=== PATIENT | male | born 1995 | race Caucasian/White ===

== ENCOUNTER 2021-07-29 07:20 | Emergency (ER) | payer OTHER ==
[2021-07-29 07:51] VITALS: BP 135/77; PULSE 102; TEMP 97.9; BMI 27.8
[2021-07-29] MEDS ORDERED: KETOROLAC TROMETHAMINE 60 MG/2 ML VIAL IM ONE (08:11)
[2021-07-29] MEDS ORDERED: KETOROLAC TROMETHAMINE 30 MG/1 ML VIAL ONE (08:16)
== END 2021-07-29 08:57 | disposition home or self-care (01) ==
LOC: JER 07:20
PROC: 3E023GC Introduction of Other Therapeutic Substance into Muscle, Percutaneous Approach (ICD-10-PCS; principal; 2021-07-29)
DX: M25.561 Pain in right knee (principal)
CPT/HCPCS: 73562-TC-RT-FY; 99284-25

== ENCOUNTER 2022-07-12 10:25 | Emergency (ER) | payer OTHER ==
[2022-07-12 10:34] VITALS: BP 115/74; PULSE 70; RESP 18; TEMP 97.4; BMI 26.4
[2022-07-12] MEDS ORDERED: KETOROLAC TROMETHAMINE 30 MG/1 ML VIAL IM ONE (10:53)
[2022-07-12] MEDS ORDERED: KETOROLAC TROMETHAMINE 30 MG/1 ML VIAL ONE (11:03)
== END 2022-07-12 11:14 | disposition home or self-care (01) ==
LOC: JERFT 10:25 → JER 10:25 → JERFT 11:14
PROC: 3E0233Z Introduction of Anti-inflammatory into Muscle, Percutaneous Approach (ICD-10-PCS; principal; 2022-07-12)
DX: T59.811A Toxic effect of smoke, accidental (unintentional), initial encounter (principal); M25.561 Pain in right knee; X08.8XXA Exposure to other specified smoke, fire and flames, initial encounter; W18.49XA Other slipping, tripping and stumbling without falling, initial encounter
CPT/HCPCS: 99284-25

== ENCOUNTER 2024-05-01 16:42 | Emergency (ER) | payer OTHER ==
[2024-05-01 16:49] VITALS: BP 156/90; PULSE 107; RESP 20; TEMP 98.2; BMI 27.9
[2024-05-01] MEDS ORDERED: IBUPROFEN 600 MG TABLET (FP) PO ONE (17:50)
[2024-05-01] MEDS: IBUPROFEN 600 MG TABLET (FP) PO ONE (17:50)
== END 2024-05-01 18:47 | disposition home or self-care (01) ==
LOC: JERFT 16:42 → JER 16:42 → JERFT 18:47
DX: M54.50 Low back pain, unspecified (principal)
CPT/HCPCS: 99283-25